=== PATIENT | male | born 1950 | race Caucasian/White ===

== ENCOUNTER → 2018-08-31 | Outpatient (CLI) | payer OTHER | LOC: BMCIMAGING 13:23 | PROVIDERS: ATTEND Podiatrist Foot & Ankle Surgery | DX: S82.51XD Displaced fracture of medial malleolus of right tibia, subsequent encounter for closed fracture with routine healing (principal) ==

== ENCOUNTER → 2018-09-19 | Outpatient (CLI) | payer OTHER | LOC: BMCIMAGING 12:43 | PROVIDERS: ATTEND Podiatrist Foot & Ankle Surgery | DX: S82.51XD Displaced fracture of medial malleolus of right tibia, subsequent encounter for closed fracture with routine healing (principal); S82.831D Other fracture of upper and lower end of right fibula, subsequent encounter for closed fracture with routine healing ==

== ENCOUNTER → 2018-10-10 | Outpatient (CLI) | payer OTHER | LOC: BMCIMAGING 12:47 | PROVIDERS: ATTEND Podiatrist Foot & Ankle Surgery | DX: Z09 Encounter for follow-up examination after completed treatment for conditions other than malignant neoplasm (principal) ==

== ENCOUNTER → 2018-11-25 | Outpatient (CLI) | payer OTHER | LOC: FIMAGING 08:47 | PROVIDERS: ATTEND Family Medicine | DX: K40.90 Unilateral inguinal hernia, without obstruction or gangrene, not specified as recurrent (principal) ==

== ENCOUNTER 2018-12-19 08:54 | Day surgery (SDC) | payer OTHER ==
[2018-12-19] MEDS ORDERED: ceFAZolin 2 GM/DEXTROSE 100 ML IV ONE (09:07)
[2018-12-19] MEDS ORDERED: LR 1,000 ML IV ONE (09:08)
[2018-12-19] MEDS ORDERED: BUPIVACAINE 0.5% 30 ML SDV ONE (10:12)
--- NOTE | 2018-12-19 10:20 | PDHPUP ---
History & Physical Update H&P update statement: This history and physical update is based on an assessment of the patient which was completed after admission or registration (within 24 hours), but prior to the surgery/procedure. H&P update: H&P reviewed & patient examined, no change in patient's condition since H&P completed
--- NOTE | 2018-12-19 10:42 | PDANEPAE ---
ANE History of Present Illness DaVinci assisted laparoscopic inguinal hernia repair ANE Past Medical History - Cardiovascular History Hx Hypertension: No Hx Arrhythmias: No Hx Chest Pain: No Hx Coronary Artery / Peripheral Vascular Disease: No Hx CHF / Valvular Disease: No Hx Palpitations: No - Pulmonary History Hx COPD: No Hx Asthma/Reactive Airway Disease: No Hx Recent Upper Respiratory Infection: No Hx Oxygen in Use at Home: No Hx Sleep Apnea: No Sleep Apnea Screening Result - Last Documented: Negative - Neurologic History Hx Cerebrovascular Accident: No Hx Seizures: No Hx Dementia: No - Endocrine History Hx Diabetes: No - Renal History Hx Renal Disorders: No - Liver History Hx Hepatic Disorders: No - Neurological & Psychiatric Hx Hx Neurological and Psychiatric Disorders: No - Cancer History Hx Cancer: No - Congenital Disorder History Hx Congenital Disorders: No - GI History Hx Gastrointestinal Disorders: No - Other Health History Other Health History: none - Chronic Pain History Chronic Pain: No - Surgical History Prior Surgeries: ankle sx 2019. hernia repair 1993. wrist repair sx 1988 ANE Review of Systems Review of Systems: - Exercise capacity METS (RN): 4 METS ANE Patient History - Allergies Allergies/Adverse Reactions: No Known Allergies Allergy (Verified 12/14/18 12:47) - Home Medications Home medications: home medication list seen and reviewed Home Medications: Rosuvastatin Calcium 12/14/18 [Last Taken 12/18/18] - NPO status NPO Status: no food or drink >8 hours NPO Since - Liquids (Date): 12/19/18 NPO Since - Liquids (Time): 06:15 NPO Since - Solids (Date): 12/18/18 NPO Since - Solids (Time): 22:30 - Anes Hx Anes Hx: no prior problems - Smoking Hx Smoking Status: Former smoker Marijuana use: No - Alcohol Use Alcohol Use: Rarely - Family Anes Hx Family Anes Hx: none Family Hx Anesthesia Complications: none ANE Labs/Vital Signs - Vital Signs Height: 185.42 cm Weight: 95.254 kg ANE Physical Exam - Airway Neck exam: FROM Mallampati Score: Class 2 Mouth exam: normal dental/mouth exam - Pulmonary Pulmonary: no respiratory distress - Cardiovascular Cardiovascular: regular rate and rhythym - ASA Status ASA Status: II ANE Anesthesia Plan Anesthesia Plan: general endotracheal anesthesia
[2018-12-19] MEDS ORDERED: fentaNYL 100 MCG/2 ML INJ ONE ×2 (10:54→13:10)
[2018-12-19] MEDS ORDERED: LIDOCAINE 2% 100 MG/5 ML SYR ONE (10:55)
[2018-12-19] MEDS ORDERED: DEXAMETHASONE 4 MG/ML VIAL ONE ×2 (10:55)
[2018-12-19] MEDS ORDERED: PROPOFOL/EMULSION 500 MG/50 ML BOTTLE IV ONE (10:55)
[2018-12-19] MEDS ORDERED: ONDANSETRON 4 MG/2 ML VIAL ONE (10:55)
[2018-12-19] MEDS ORDERED: ROCURONIUM 50 MG/5 ML VIAL ONE (10:55)
[2018-12-19] MEDS ORDERED: LIDOCAINE HCL 160 MG/4 ML LTA KIT TP ONE (10:58)
[2018-12-19] MEDS ORDERED: MEPERIDINE 25 MG/0.5 ML AMP IVP PRN (11:59)
[2018-12-19] MEDS ORDERED: NALOXONE HCL 0.4 MG/ML INJ IVP PRN (11:59)
[2018-12-19] MEDS ORDERED: ONDANSETRON 4 MG/2 ML VIAL IVP PRN (11:59)
[2018-12-19] MEDS ORDERED: LR 500 ML IV PRN (11:59)
[2018-12-19] MEDS ORDERED: LABETALOL HCL 5 MG/ML 20 ML MDV IVP PRN (11:59)
[2018-12-19] MEDS ORDERED: HYDROCODONE/APAP 5/325 TAB PO PRN (11:59)
[2018-12-19] MEDS ORDERED: METOCLOPRAMIDE 10 MG/2 ML VIAL IVP PRN (11:59)
[2018-12-19] MEDS ORDERED: ACETAMINOPHEN 500 MG TAB PO PRN (11:59)
[2018-12-19] MEDS ORDERED: ALBUTEROL 3 ML DEYVIAL IH PRN (11:59)
[2018-12-19] MEDS ORDERED: oxyCODONE IR 5 MG TAB PO PRN (11:59)
[2018-12-19] MEDS ORDERED: PHENYLEPHRINE HCL 100 MCG/ML SYR IVP PRN (11:59)
[2018-12-19] MEDS ORDERED: PROMETHAZINE HCL 25 MG/ML INJ IVP PRN (11:59)
[2018-12-19] MEDS ORDERED: DEXAMETHASONE 4 MG/ML VIAL IVP PRN (11:59)
[2018-12-19] MEDS ORDERED: ePHEDrine SULFATE 25 MG/5 ML SYR ONE (12:16)
[2018-12-19] MEDS ORDERED: NEOSTIGMINE METHYLSULFATE 10 MG/10 ML MDV ONE (12:37)
[2018-12-19] MEDS ORDERED: GLYCOPYRROLATE 0.2 MG/1 ML VIAL ONE ×2 (12:37)
--- NOTE | 2018-12-19 12:46 | POSTOPPROG ---
Post Op Note Date of Operation: 12/19/18 Surgeon: Mynor Butterfield Inspector Tool: Margot Dukes Anesthesiologist: Mikey Bauer Anesthesia: GET(General Endotracheal) Pre-op Diagnosis: LIH Post-op Diagnosis: same Procedure: robotic assisted LIH repair c mesh Findings: +LIH Inf/Abcess present in the surg proc area at time of surgery?: No EBL: Minimal Complications: none Bowel Protocol: N/A Clean Closure Performed: N/A Specimen(s): none
[2018-12-19] MEDS: fentaNYL 100 MCG/2 ML INJ IVP PRN ×2 (13:13→13:34)
--- NOTE | 2018-12-19 13:19 | POSTANESTH ---
Post Anesthetic Evaluation Cardiovascular Status: Normal, Stable Respiratory Status: Normal, Stable Level of Consciousness/Mental Status: Can Participate in Eval Pain Control: Adequate, Prn Tx Ordered Nausea/Vomiting Control: Adequate, Prn Tx Ordered Complications Possibly Related to Anesthesia: None Noted
[2018-12-19] MEDS ORDERED: CEPACOL LOZENGE PO ONE (14:20)
[2018-12-19] MEDS ORDERED: CEPACOL LOZENGE PO PRN (14:26)
[2018-12-19 16:22] VITALS: BP 107/57
--- NOTE | 2018-12-21 21:51 | GOP ---
[f rep st] OPERATIVE REPORT DATE OF OPERATION: 12/19/2018 SURGEON: Mynor Butterfield MD PREOPERATIVE DIAGNOSIS: Left inguinal hernia. POSTOPERATIVE DIAGNOSIS: Left inguinal hernia. PROCEDURE PERFORMED: Robotic laparoscopic left inguinal hernia repair. FINDINGS: The patient was found to have a distinct direct left inguinal hernia with no evidence of a n indirect sac and no evidence of herniation on the right. DESCRIPTION OF PROCEDURE: Patient was taken to the operating room where he received satisfactory gen eral endotracheal anesthesia by Dr. Bauer. He was placed in a supine position, prepped, and draped i n usual sterile fashion. A supraumbilical incision was made, a Veress needle inserted. Pneumoperito neum was established. A trocar was introduced. Laparoscope introduced. Good visualization was obta ined. Two other trocars were placed on either side. The robot was then docked with the patient in [facility] and targeted. At that point, the pelvis was examined with no evidence of herniation on the right. A peritoneal flap was then created over the inguinal area on the left. The contents of t he direct sac were reduced, and the hernia sac was freed up. Dissection extended down to the symphys is and the pubic bone all way down to the femoral vein and then laterally as well as outside of the c ord structures. The inferior flap was created. The cord was mobilized and dissected free. There wa s no evidence of an indirect sac or even a significant lipoma. Adequate exposure was achieved, and t hen a 3DMax light patch was introduced and positioned in the inguinal floor. It was sutured in place with 2-0 silk sutures securing it to Federico's ligament and into the lacunar ligament as well as supe riorly to the internal oblique fascia leaving the mesh secured in place. Hemostasis was assured. Th e posterior flap was then closed with a running 2-0 V-Loc suture closing up the defect completely ove r the mesh. Hemostasis appeared to be adequate. The trocars were then undocked from the robot and r emoved. Trocar sites were closed with 4-0 Monocryl subcuticular stitch for the skin and all layers i nfiltrated with Marcaine. He tolerated the procedure well, was taken to the recovery room in good condition. There were no complications. /[id number]/MODL
== END 2018-12-19 16:26 | disposition home or self-care (01) ==
LOC: FSGY 08:54
PROVIDERS: ATTEND Surgery
DX: K40.90 Unilateral inguinal hernia, without obstruction or gangrene, not specified as recurrent (principal); E78.5 Hyperlipidemia, unspecified; Z87.891 Personal history of nicotine dependence
CPT/HCPCS: C1781; J0690; J1100; J2001; J2405; J2704; J3010